=== PATIENT | female | born 1960 | race Caucasian/White ===

== ENCOUNTER 2017-12-19 07:04 | Outpatient (CLI) | payer OTHER, SELFPAY ==
[2017-12-19 07:32] LABS: HCT 43.3 % (36.0-46.0); HGB 14.5 g/dL (12.0-15.5); Mean Corp. HGB Concentration 33.5 g/dL (32.0-36.0); Mean Corpuscular Hemoglobin 31.7 pg (27.0-33.0); Mean Corpuscular Volume 94.7 fL (80-95); Mean Platelet Volume 9.8 fL (8.0-11.0); Platelet Count 231 x1000/uL (130-400); RBC 4.57 m/cumm (4.00-5.20); RBC Distribution Width 12.4 % (11.7-14.6); White Blood Cell Count 5.14 k/cumm (4.4-10.8)
[2017-12-19 08:32] LABS: ALT 36 U/L (12-78); AST 19 U/L (15-37); Albumin 3.6 g/dL (3.4-5.0); Alkaline Phosphatase 64 U/L (46-116); Anion Gap 7.5 mmol/L (3-11); BUN 20 mg/dL (7-18); Bilirubin, Total 0.4 mg/dL (0.2-1.0); CO2 30.5 mmol/L (21.0-32.0); CREATININE 0.64 mg/dL (0.55-1.02); Calcium 8.9 mg/dL (8.5-10.1); Chloride 105 mmol/L (98-107); Cholesterol 210 mg/dL (50-200); Glucose 106 mg/dL (70-100); HDL Cholesterol 73 mg/dL (40-60); LDL CHOLESTEROL 119 mg/dL (<100); Potassium 4.3 mmol/L (3.5-5.1); Sodium 143 mmol/L (136-145); Total Protein 6.7 g/dL (6.4-8.2); Triglyceride 54 mg/dL (30-150)
[2017-12-19 08:37] LABS: TSH (W/Ref FT4) 2.25 uIU/mL (0.358-3.74)
--- NOTE | 2017-12-19 10:00 | DI.MAMMO_ITS ---
SYMPTOM/DIAGNOSIS: SCREENING, Z12.31 MAMMOGRAMS: Mammograms were interpreted according to the usual protocol including computer analysis with CAD system, tomosynthesis and C view imaging. Comparison is made with prior examinations. Breast density, category B. No masses or microcalcifications are seen. There is nothing to suggest malignancy. IMPRESSION: Negative mammogram. Routine screening is recommended. Category 1. MQSA ASSESSMENT OF FINDINGS: Negative. Category 1. Patient will receive a letter notifying them of these results. BI-RADS category B. There are scattered areas of fibroglandular density.
== END 2017-12-19 07:24 ==
PROVIDERS: PCP Student in an Organized Health Care Education/Training Program; Visit Provider Student in an Organized Health Care Education/Training Program
DX: R53.83 Other fatigue (principal); Z12.31 Encounter for screening mammogram for malignant neoplasm of breast
CPT/HCPCS: 36415; 77063; 77067; 80053; 80061; 83721; 85027; 84443

== ENCOUNTER 2018-01-04 14:19 | Outpatient (REF) | payer OTHER, SELFPAY ==
--- NOTE | 2018-01-04 13:00 | PAPFT_PTH ---
PATIENT: Shannan Jeff LOC: N U#:[id number] AGE/SX: 57/F ROOM: RE01/04/[address]: Lianne Monzon : 1960 BED: DIS: 01/04/2018 SPEC #: [id number] RECD: 01/04/18 17:25 STATUS: ALICJA REQ #: [id number] BRANDY: 01/04/18 13:[address]: Lianne Monzon DEPT: [facility] Cytology RECD BY: Brittney Wilkerson ENTERED: 01/04/18 17:26 SP TYPE: PAPFT OTHR DR: Kenna Sepulveda DO Tissues: 1 - CX/ENDOCX FOR PAP SMEARS Procedures: PAP THIN PREP/UVM Screening HPV DNA PROBE Comments: [id number]
== END 2018-01-04 14:39 ==
LOC: LBN 14:19
PROVIDERS: PCP Student in an Organized Health Care Education/Training Program; Visit Provider Obstetrics & Gynecology Gynecology
DX: Z12.4 Encounter for screening for malignant neoplasm of cervix (principal); Z11.51 Encounter for screening for human papillomavirus (HPV)
CPT/HCPCS: 88142; 87624

== ENCOUNTER 2018-04-09 12:58 | Outpatient (CLI) | payer OTHER, SELFPAY ==
--- NOTE | 2018-04-09 14:21 | W.PREOPHP ---
Assessment and Plan (1) Jacobs's neuroma of left foot: Current visit: No Status: Acute Plan: Discussed surgery reviewing recovery, benefits and risks including but not limited to risk of infection, blood clot, damage to soft tissue/nerve/blood vessels with patient in detail. After discussion patient gives verbal understanding of risks and elects to proceed with scheduling surgery. Patient had opportunity to ask questions answered to her satisfaction. Patient will contact office if issues arise, she will continue to be scheduled for left Jacobs's neuroma resection with Dr. Robbins on 04/12/18. Ms. Francoise Arceo is a 58-year-old female who presents to clinic for preoperative visit for scheduled left Jacobs's neuroma resection surgery with Dr. Robbins on 04/12/18. Patient has previously been seen in clinic and was diagnosed with Jacobs's neuroma on her left foot based on persistent left foot pain and numbness between the second webspace that has been going on for greater than 2 years. In the past patient has tried series of corticosteroid injections, shoe modification and metatarsal pads without significant pain relief. At first patient had slight symptomatic relief with conservative therapies but eventually had worsening left foot symptoms. Patient reports symptoms are aggravated at the end of the day if she standing for prolonged amount of time. 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 She continues to have pain that is aggravated throughout the evening and night. She denies any recent injuries or falls. Due to patient's continued pain despite adequate trial of conservative therapies, she was offered and elected to proceed with surgical intervention. Pertinent Surgical Information Patient has previous history of infrequent chest pain was described as 3?4 episodes over the course of 3 years. Cardiology consult from [facility] on 12/04/17 states the stress echo from 2014 was normal, ETT from 2017 showed patient was able to exercise for 10 minutes without subjective or objective symptoms. At that time patient was diagnosed with infrequent episodes of chest pain and told to follow-up on a yearly basis. Patient reports she has not had episodes of chest pain or used nitroglycerin since she was seen in the emergency room on 06/11/16. As per patient report she was told her chest pain was likely due to Prinzmetal's angina but could not be proven on EKG. At today's visit patient denies all cardiac symptoms. Patient reports she recently had a cold that caused her to have nasal congestion, nasal discharge and a dry cough. Patient reports over the past week she has had slight improved symptoms but continues to have mild nasal congestion and dry cough. States she is only taking OTC cold medication during the day; no longer requires nighttime dosing. Patient denies recent fevers, additional HEENT symptoms and additional respiratory symptoms. Reports history of acid reflux that is currently well controlled on DGL (deglycyrrhizinated licorice). Denies recent episodes of acid reflux or ulcers. Denies past medical history of: Hypertension, stroke, asthma, COPD, sleep apnea, renal issues, liver issues, hepatitis, ulcers, hyperlipidemia, bleeding disorders, seizures, diabetes, autoimmune disorders, thyroid issues Denies prior complications from surgery or anesthesia. Review of Systems Constitutional Denies fever(s), Denies frequent falls and Denies headache(s) Eyes Denies change in vision ENT Denies dizziness, Denies otalgia, Denies headache(s), Denies epistaxis, Reports nasal congestion (improving from a recent cold), Denies nasal discharge and Denies sore throat Cardiovascular Denies chest pain, Denies rapid heart rate, Denies irregular heart rhythm, Reports leg edema (following activity), Denies dyspnea, Denies dyspnea on exertion, Denies orthopnea, Denies paroxysmal nocturnal dyspnea and Denies slow heart rate Respiratory Denies change in phlegm color, Reports cough (dry cough; improving from a recent cold), Denies excessive phlegm production, Denies dyspnea, Denies dyspnea on exertion and Denies wheezing Gastrointestinal Denies abdominal pain, Denies melena, Denies hematochezia, Denies constipation, Denies diarrhea, Denies nausea and Denies vomiting Genitourinary Denies hematuria, Denies dysuria and Denies urinary urgency Musculoskeletal Reports as per HPI and Denies numbness (between second webspace of left foot) Integumentary/Breasts Denies acne, Denies sores and Denies wounds Neurologic Denies dizziness, Denies frequent falls, Denies headache(s) and Denies numbness (between second webspace of left foot) Psychiatric Denies anxiety and Denies depression Allergic/Immunologic Denies wheezing PFSH Medical History Vaginal dryness, menopausal Sleeping difficulties (Chronic) Other chest pain (Acute 06/17/16) Myofascial pain (Acute 10/21/11) Jacobs's neuroma of left foot (Acute 02/29/16) Migraine without aura (Acute 10/21/11) Menopausal symptoms (Resolved 09/16/13) GERD (gastroesophageal reflux disease) (Acute 01/23/14) Dyspareunia (Acute 11/26/14) Adjustment disorder with depressed mood (Acute 12/07/16) Postmenopausal HRT (hormone replacement therapy) (Inactive 06/13/17) Surgical History CYST REMOVED FROM NECK Colonoscopy - IV Sedation (12/07/12) GAGLION CYST Tonsillectomy and adenoidectomy Family History Mother Hypertensive disorder, systemic arterial Diabetes Personal history of malignant neoplasm Depression Heart disease Hyperlipidemia Father Personal history of malignant neoplasm Alzheimer's disease Heart disease Sister Diabetes Brother Personal history of malignant neoplasm Heart disease Brother No problems noted. Brother No problems noted. Brother No problems noted. 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 water heater temp set < 120 deg: Yes working smoke detector in home: Yes fire extinguisher in home: Yes carbon monox detector in home: Yes firearms in home: Yes firearms unloaded and locked: No do you feel safe at home: No victim of physical abuse: No victim of emotional abuse: No victim of sexual abuse: No Female Reproductive History Menstrual Menopause type: natural Date of menopause: 01/20/14 History History 0 Para Hx # Term Pregnancies Multiple births Hx # Pregnancies Ectopic pregnancies AB induced Hx Number of Living Children AB spontaneous Meds Home Medications Medication Instructions Recorded Confirmed Type multivitamin [Daily Multi-Vitamin] 1 ea PO DAILY 05/16/12 04/09/18 History Dgl Ultra 1 tab PO TID 08/26/13 04/09/18 History ibuprofen 600 mg PO ONCE PRN tab-cap 12/16/13 04/09/18 History calcium carbonate-vitamin D3 1 ea PO 01/23/14 04/09/18 History Pwlbsteiouf-Qptsa-SFI Complex 1 ea PO BID 06/19/15 04/09/18 History nitroglycerin [Nitrostat] 0.4 mg SUBLINGUAL PRN PRN 07/01/16 04/09/18 History magnesium oxide 400 mg PO DAILY 10/06/16 04/09/18 History estradiol [Estring] 1 ea VG every 3 months #1 ea 06/13/17 04/09/18 Rx melatonin 3 mg tablet 3 mg PO HS PRN 11/17/17 04/09/18 History omega-3 fatty acids 1,000 mg 1,000 mg PO DAILY 01/04/18 04/09/18 History capsule cyanocobalamin (vitamin B-12) 2,500 mcg SUBLINGUAL DAILY 04/09/18 04/09/18 History [Vitamin B-12] folic acid 0.8 mg PO DAILY 04/09/18 04/09/18 History Allergies Allergy/AdvReac Type Severity Reaction Status Date / Time codeine AdvReac Intermediate GI Unverified 04/09/18 14:02 INTOLERANCE meloxicam AdvReac Intermediate groggy Unverified 04/09/18 14:02 Exam Const General: cooperative and no acute distress [facility] Head: normal to inspection, normocephalic and atraumatic Ears: external ears normal General nose exam: external nose normal and no nasal discharge Face and sinus: face symmetric Throat: posterior oropharynx normal (no erythema) Eyes General: appearance normal, both eyes and all related structures Neck Neck: trachea midline Lymphatic: no lymphadenopathy noted Resp Effort & Inspection: normal respiratory effort and able to speak in complete sentences Auscultation: clear to auscultation bilaterally, no rales, no rhonchi and no wheezes Cardio Heart Sounds: S1 normal, S2 normal, no murmurs, no rubs and no other Pulses: radial pulses present bilaterally Skin General skin exam: no rashes or lesions noted
== END 2018-04-09 13:18 ==
PROVIDERS: PCP Student in an Organized Health Care Education/Training Program; Visit Provider Student in an Organized Health Care Education/Training Program
DX: G57.62 Lesion of plantar nerve, left lower limb (principal); Z01.818 Encounter for other preprocedural examination
CPT/HCPCS: NC

== ENCOUNTER 2018-04-12 10:37 | Day surgery (SDC) | payer OTHER, SELFPAY ==
[2018-04-12 10:53] VITALS: BP 131/72; PULSE 66; RESP 16; TEMP 35.9; O2SAT 99
[2018-04-12] MEDS: Lactated Ringers 1,000 ML 80 ML IV (11:25)
--- NOTE | 2018-04-12 12:30 | W.PM.DSUDISC ---
Discharge Plan Disposition Patient Disposition: HOME Condition: Good Discharge Details Reason For Visit: Left Jacobs's Neuroma Attending Provider: Oscar Robbins Primary Care Provider: Kenna Sepulveda Home Meds and New Rx's Prescriptions: New acetaminophen 500 mg tablet 1,000 mg PO Q8H PRN (Reason: pain) Qty: 60 RF: 3 ibuprofen 600 mg tablet 600 mg PO TID PRNQty: 60 RF: 3 Continued melatonin 3 mg tablet 3 mg PO HS PRNRF: 0 omega-3 fatty acids [Fish Oil Concentrate] 1,000 mg capsule 1,000 mg PO DAILY RF: 0 multivitamin [Daily Multi-Vitamin] 1 EACH tablet 1 ea PO DAILY RF: 0 DGL Ultra 1 tab PO TID RF: 0 calcium carbonate-vitamin D3 1 EACH tablet 1 ea PO RF: 0 Hbpzthsngyc-Qbxgf-EFG Complex 1 EACH tablet 1 ea PO BID RF: 0 nitroglycerin [Nitrostat] 0.4 MG tablet, sublingual 0.4 mg Sublingual PRN PRNRF: 0 magnesium oxide 400 MG tablet 400 mg PO DAILY RF: 0 Estring 1 EACH ring 1 ea VG every 3 months Qty: 1 RF: 4 cyanocobalamin (vitamin B-12) [Vitamin B-12] 2,500 mcg Tablet, Sublingual 2,500 mcg SUBLINGUAL DAILY RF: 0 folic acid 800 mcg Tablet 0.8 mg PO DAILY RF: 0 Discontinued ibuprofen 200 MG capsule 600 mg PO ONCE PRNRF: 0 Discharge Instructions Additional Instructions: Activity: You may weight bear as tolerated in the post-op shoe. You should keep the leg elevated as much as possible. You may wiggle your toes and move your hip and knee. You should wear the post-op shoe when you are up and mobilizing, but may remove it when not and move your ankle as tolerated. Dressings: You should keep the initial dressing on for at least 3 days. After 3 days, you may remove it and get it wet in the shower. You should keep it covered with a light gauze dressing or wrap until follow-up. Medications: - You should take Tylenol and Ibuprofen around the clock for baseline pain. Follow-up: 2 weeks Referrals: Oscar Robbins MD [ [facility] STAFF PHYSICIAN] - Equipment/Supplies: Partial Weight Bearing Crutches Activity:: Activity as Tolerated Remove Dressings/Wound Care:: 72 hours Shower/Bathe:: 72 hours Diet:: As Tolerated Discharge Orders Discharge Orders: Discharge Order (Routine); Ordered 04/12/18 Ordered By: Oscar Robbins DS: Diagnosis Discharge Diagnosis (1) Jacobs's neuroma of left foot: Status: Acute
--- NOTE | 2018-04-12 12:34 | PDOC.DSDIS_ITS ---
Discharge Plan Disposition Patient Disposition: HOME Condition: Good Discharge Details Reason For Visit: Left Jacobs's Neuroma Attending Provider: Oscar Robbins Primary Care Provider: Kenna Sepulveda Home Meds and New Rx's Prescriptions: New acetaminophen 500 mg tablet 1,000 mg PO Q8H PRN (Reason: pain) Qty: 60 RF: 3 ibuprofen 600 mg tablet 600 mg PO TID PRNQty: 60 RF: 3 Continued melatonin 3 mg tablet 3 mg PO HS PRNRF: 0 omega-3 fatty acids [Fish Oil Concentrate] 1,000 mg capsule 1,000 mg PO DAILY RF: 0 multivitamin [Daily Multi-Vitamin] 1 EACH tablet 1 ea PO DAILY RF: 0 DGL Ultra 1 tab PO TID RF: 0 calcium carbonate-vitamin D3 1 EACH tablet 1 ea PO RF: 0 Kffnzhkaosj-Opqyy-FJI Complex 1 EACH tablet 1 ea PO BID RF: 0 nitroglycerin [Nitrostat] 0.4 MG tablet, sublingual 0.4 mg Sublingual PRN PRNRF: 0 magnesium oxide 400 MG tablet 400 mg PO DAILY RF: 0 Estring 1 EACH ring 1 ea VG every 3 months Qty: 1 RF: 4 cyanocobalamin (vitamin B-12) [Vitamin B-12] 2,500 mcg Tablet, Sublingual 2,500 mcg SUBLINGUAL DAILY RF: 0 folic acid 800 mcg Tablet 0.8 mg PO DAILY RF: 0 Discontinued ibuprofen 200 MG capsule 600 mg PO ONCE PRNRF: 0 Discharge Instructions Additional Instructions: Activity: You may weight bear as tolerated in the post-op shoe. You should keep the leg elevated as much as possible. You may wiggle your toes and move your hip and knee. You should wear the post-op shoe when you are up and mobilizing, but may remove it when not and move your ankle as tolerated. Dressings: You should keep the initial dressing on for at least 3 days. After 3 days, you may remove it and get it wet in the shower. You should keep it covered with a light gauze dressing or wrap until follow-up. Medications: - You should take Tylenol and Ibuprofen around the clock for baseline pain. Follow-up: 2 weeks Referrals: Oscar Robbins MD [ [facility] STAFF PHYSICIAN] - Equipment/Supplies: Partial Weight Bearing Crutches Activity:: Activity as Tolerated Remove Dressings/Wound Care:: 72 hours Shower/Bathe:: 72 hours Diet:: As Tolerated Discharge Orders Discharge Orders: Discharge Order (Routine); Ordered 04/12/18 Ordered By: Oscar Robbins DS: Diagnosis Discharge Diagnosis (1) Jacobs's neuroma of left foot: Status: Acute
[2018-04-12] MEDS: Bupivacaine 0.25% Pres-Free 30 ML VIAL (13:33)
[2018-04-12] MEDS: Bupivacaine LIPOSOME/PF 133 MG/10 ML VIAL IJ (13:33)
[2018-04-12] MEDS: HYDROcodone 5/Acetaminophen 325 TAB PO (14:20)
[2018-04-12 15:15] VITALS: BP 124/65; PULSE 71; RESP 18; TEMP 35.9; O2SAT 99
--- NOTE | 2018-04-13 07:50 | ROE_ITS ---
REPORT OF OPERATIVE PROCEDURE DATE OF SURGERY April 12, 2018 PREOPERATIVE DIAGNOSIS Left second webspace Jacobs's neuroma. POSTOPERATIVE DIAGNOSIS Left second webspace Jacobs's neuroma. SURGERY Left second webspace Jacobs's neuroma excision with intermetatarsal ligament release. SURGEON Oscar Robbins M.D. COMMUNITY SERVICE WORKER Mehdi Bernard, Medical Student ANESTHESIA MAC FINDINGS There was some significant inflammation seen within the second webspace. The common digital nerve was exposed after releasing the intermetatarsal ligament, which showed significant swelling proximal to the intermetatarsal ligament. The nerve was released and removed. ESTIMATED BLOOD LOSS 5 cc COMPLICATIONS None. DISPOSITION The patient was awakened from sedation and taken to the PACU in stable condition. INDICATIONS FOR PROCEDURE Jaqui is a 58-year old who has had persistent pain over the second webspace of the left foot with exten renetta and sometimes into the toes. She has failed conservative treatment options including orthotics, metatarsal pads, activity modification, and shoe modification. Given these failures, she desires to p roceed with some more definitive. I offered surgical intervention to the left foot. I reviewed the ri sks of the procedure to include bleeding, infection, pain, stiffness, weakness, persistent numbness, continued pain. Despite these risks, she elected to proceed. PROCEDURE DESCRIPTION Jaqui was greeted in the preoperative holding area. Her identity was confirmed and the correct side was identified and marked. The consent was reviewed with the patient and signed. The history and physica l was updated. She was taken back to the Operating Room and placed in the supine position. All bony p rominences were padded. The left leg was prepped with ChloraPrep and draped in a standard fashion. P rophylactic antibiotics in the form of cefazolin were given. A timeout was performed for safe surgery . The left leg was then placed over a triangle so the foot was plantar grade against the bed. The propo sed surgical site was then anesthetized with 0.25% bupivacaine. A 3-cm incision was made between the second and third metatarsals. This was taken down sharply through the skin. Crossing branches of vei ns and nerves were protected. Deeper dissection was performed bluntly with a finger, down in between the metatarsals. The metatarsals were using a lamina senior electronics design engineer. This exposed the lumbricals deep within this webspace and further deep was the intermetatarsal ligament. This ligament was releas ed. This allowed the metatarsals to open up more, exposing the fat from the plantar surface, as well as the common digital nerve. It was noted that just proximal to the intermetatarsal ligament, the ner ve was significantly swollen. The nerve was dissected out until it got to it bifurcation point. The n erve was then transected right past its bifurcation point into the second and third toes. Once this w as transected, the nerve was pulled with some tension and dissected more proximally. Once the nerve w as dissected into the musculature of the plantar foot, it was transected sharply. The wound was then thoroughly irrigated. The bleeding was controlled with electrocautery. Deep tissues were closed with #3-0 Vicryl. The skin was closed with a #4-0 Monocryl, followed by Steri-Strips, 4x4s, Kerlix and Ac e wrap. She was placed into a postop shoe. At the end of the case, all counts were correct.
== END 2018-04-12 15:20 | disposition home or self-care (01) ==
PROVIDERS: PCP Student in an Organized Health Care Education/Training Program; Visit Provider Student in an Organized Health Care Education/Training Program
PROC: (CPT 28080; principal; 2018-04-12 12:45)
DX: G57.62 Lesion of plantar nerve, left lower limb (principal); M79.672 Pain in left foot; K21.9 Gastro-esophageal reflux disease without esophagitis
CPT/HCPCS: 28080; E0114; J0690

== ENCOUNTER 2019-01-24 09:58 | Outpatient (REF) | payer OTHER, SELFPAY ==
--- NOTE | 2019-01-24 09:20 | PAPFT_PTH ---
PATIENT: Shannan Jeff LOC: [facility] U#:[id number] AGE/SX: 58/F ROOM: RE01/24/[address]: Lianne Monzon : 1960 BED: DIS: 01/24/2019 SPEC #: [id number] RECD: 01/24/19 13:11 STATUS: ALICJA REQ #: [id number] BRANDY: 01/24/19 09:[address]: Lianne Monzon DEPT: [facility] Cytology RECD BY: Brittney Wilkerson ENTERED: 01/24/19 13:12 SP TYPE: PAPFT OTHR DR: Kenna Sepulveda DO Tissues: 1 - CX/ENDOCX FOR PAP SMEARS Procedures: PAP THIN PREP/UVM Screening HPV DNA PROBE Comments: [id number]
== END 2019-01-24 10:18 ==
LOC: LBN 09:58
PROVIDERS: PCP Student in an Organized Health Care Education/Training Program; Visit Provider Obstetrics & Gynecology Gynecology
DX: Z12.4 Encounter for screening for malignant neoplasm of cervix (principal)
CPT/HCPCS: 88142; 87624

== ENCOUNTER 2019-02-18 09:40 | Outpatient (CLI) | payer OTHER, SELFPAY ==
--- NOTE | 2019-02-18 09:59 | DI.DEXA_ITS ---
EXAM: XR DEXA BONE DENSITY W/WO ANNA INDICATION: evaluate bone density Z78.0. COMPARISON: No exams were available for comparison TECHNIQUE: 2D digital imaging was performed. FINDINGS: No compression deformities are seen in the spine. Evaluation of the left hip shows a total T-score of 0.4 and a Z-score of 1.2. This is within normal limits. This compares with a total T-score of 1.7 from 2003. Evaluation of the lumbar spine shows a total T-score of -0.5 and a Z-score of 0.8. This is within no rmal limits. This compares with a total T-score of 1.0 from 2003. IMPRESSION: No evidence of osteoporosis.
== END 2019-02-18 10:00 ==
PROVIDERS: PCP Student in an Organized Health Care Education/Training Program; Visit Provider Obstetrics & Gynecology Gynecology
DX: Z78.0 Asymptomatic menopausal state (principal); Z13.820 Encounter for screening for osteoporosis
CPT/HCPCS: 77080

== ENCOUNTER 2019-03-18 08:44 | Outpatient (CLI) | payer OTHER, SELFPAY | END 2019-03-18 09:04 | PROVIDERS: PCP Student in an Organized Health Care Education/Training Program; Visit Provider Internal Medicine Cardiovascular Disease | DX: R07.89 Other chest pain (principal); Z82.49 Family history of ischemic heart disease and other diseases of the circulatory system | CPT/HCPCS: 93005; 93010 ==

== ENCOUNTER 2019-06-25 13:46 | Outpatient (CLI) | payer OTHER, SELFPAY ==
--- NOTE | 2019-06-25 13:45 | DI.MAMMO_ITS ---
EXAM: MAMMO SCREENING CLINICAL HISTORY: screening,z12.39 TECHNIQUE: Mammograms were interpreted according to the usual protocol including computer analysis w Edyn CAD system, tomosynthesis and 2D or C-view imaging. COMPARISON: 2010 through 2017 FINDINGS: The breasts are composed of scattered fibroglandular densities, breast density category B. There is is an symmetric densities seen in the medial right breast adjacent to a vessel. The finding s may represent overlying fibroglandular tissue. Spot compression views are requested for further ev aluation. Ultrasound may also be indicated at that time. No suspicious calcifications are seen. The left breast shows no mass, calcification or other change. IMPRESSION: Left breast: BI-RADS category 1, negative mammogram. Right breast: BI-RADS category 0, additional imaging is requested. Breast Density - Category B - Scattered areas of fibroglandular density The patient will receive a letter notifying them of these results.
== END 2019-06-25 14:06 ==
PROVIDERS: PCP Student in an Organized Health Care Education/Training Program; Visit Provider Obstetrics & Gynecology Gynecology
DX: Z12.31 Encounter for screening mammogram for malignant neoplasm of breast (principal)
CPT/HCPCS: 77063; 77067

== ENCOUNTER 2019-06-26 12:12 | Outpatient (CLI) | payer OTHER, SELFPAY ==
--- NOTE | 2019-06-26 | DI.US_ITS ---
EXAM: US BREAST RT LIMITED CLINICAL HISTORY: f/u [facility] MAMMO 06/24 TECHNIQUE: Ultrasound right breast performed using standard protocol. COMPARISON: Comparison is made with mammograms dated June, as well as additional views of 2019. FINDINGS: No solid or cystic masses, hypoechoic foci, areas of abnormal shadowing, or areas of skin thickening. IMPRESSION: No sonographically suspicious finding. BI-RADS category 3- Probably Benign Finding: Recommend follow-up mammography in 6 months DATA REPOSITORY:
--- NOTE | 2019-06-26 | DI.MAMMO_ITS ---
EXAM: MAMMO SCREEN CALL BACK UNI CLINICAL HISTORY: F/U ABNL MAMMO 06/24. COMPARISON: June, as well as exams back to 2010. TECHNIQUE: Spot compression views with tomography were performed in the CC and MLO projections of th e lower and inner aspects of the right breast. FINDINGS: Mammography/Tomosynthesis: On the spot compression CC view, there is a question of a persistent area of asymmetry in the medial right breast. No abnormality or change is seen on the MLO spot view. /Architectural Distortion: None seen. Microcalcifications: No suspicious pleomorphic type calcifications are seen. Skin Thickening/Nipple Retraction: None. IMPRESSION: BI-RADS category 3- probably Benign Findings: Recommend follow-up right mammogram in 6 months. A negative radiographic report should not delay biopsy if a dominant or clinically suspicious mass is present. Up to ten percent of cancers are not identified on mammography. A negative report may reinforce clinical impression. Adenosis and dense breasts may obscure an underlying neoplasm. False positive reports average 6 to 10%. Patient will receive a letter notifying them of these results.
== END 2019-06-26 12:32 ==
PROVIDERS: PCP Student in an Organized Health Care Education/Training Program; Visit Provider Obstetrics & Gynecology Gynecology
DX: Z12.31 Encounter for screening mammogram for malignant neoplasm of breast (principal); R92.8 Other abnormal and inconclusive findings on diagnostic imaging of breast; N60.81 Other benign mammary dysplasias of right breast
CPT/HCPCS: 76642; 77063; 77067

== ENCOUNTER 2019-11-26 07:15 | Outpatient (CLI) | payer OTHER, SELFPAY ==
[2019-11-28 15:23] LABS: Patient Race White; SARS-CoV-2 RNA Undetected (Undetected); SARS-CoV-2 Specimen Source Nasal
== END 2019-11-26 07:35 ==
PROVIDERS: PCP Student in an Organized Health Care Education/Training Program; Visit Provider Nurse Practitioner Family
DX: Z11.59 Encounter for screening for other viral diseases (principal)
CPT/HCPCS: U0003

== ENCOUNTER 2020-01-14 01:33 | Outpatient (CLI) | payer OTHER, SELFPAY ==
--- NOTE | 2020-01-14 09:26 | DI.MAMMO_ITS ---
EXAM: MG MAMMO DIAGNOSTIC UNI CLINICAL HISTORY: F/U MAMMO, 6 MONTH FOLLOW UP. TECHNIQUE: Craniocaudal and mediolateral oblique Full Field Digital Mammography views of the right breast with Computer Aided Diagnosis followed by Tomosynthesis. COMPARISON: 25 Jun 2019 and other exams back to 2010. FINDINGS: Mammography/Tomosynthesis: The previously noted asymmetric densities seen in the lower inner quadrant of the right breast is le ss prominent when compared with the previous exam. Masses/Architectural Distortion: None seen. Microcalcifictions: No suspicious pleomorphic-type are seen. Skin Thickening/Nipple Retraction: None. IMPRESSION: 1. No evidence of malignancy is noted. 2. Bilateral screening should be resumed in 6 months. BI-RADS Category 2 - Benign Findings Breast Density - Category B - Scattered areas of fibroglandular density A negative radiographic report should not delay biopsy if a dominant or clinically suspicious mass is present. Up to ten percent of cancers are not identified on mammography. A negative report may reinforce clinical impression. Adenosis and dense breasts may obscure an underlying neoplasm. False positive reports average 6 to 10%. Patient will receive a letter notifying them of these results.
== END 2020-01-14 01:53 ==
PROVIDERS: PCP Student in an Organized Health Care Education/Training Program; Visit Provider Obstetrics & Gynecology Gynecology
DX: R92.8 Other abnormal and inconclusive findings on diagnostic imaging of breast (principal)
CPT/HCPCS: 77061; 77065; G0279

== ENCOUNTER 2020-09-08 10:35 | Outpatient (CLI) | payer OTHER, SELFPAY ==
--- NOTE | 2020-09-08 09:30 | DI.MAMMO_ITS ---
Exam(s) MG MAMMO SCREENING EXAM: MG MAMMO SCREENING CLINICAL HISTORY: screening, Z12.39 TECHNIQUE: Mammograms were interpreted according to the usual protocol including computer analysis w ith CAD system, tomosynthesis and C-view imaging. COMPARISON: MG Screening Bilat Mammo from 11/12/2014 MG Screening Bilat Mammo from 02/24/2016 MG Screening Bilat Mammo from 02/24/2016 MG MG mammo screening from 12/19/2017 MG MG mammo screening from 12/19/2017 MG MG MAMMO SCREENING from 06/25/2019 MG MG MAMMO SCREEN CALL BACK UNI from 06/26/2019 MG MG MAMMO SCREEN CALL BACK UNI from 06/26/2019 MG MG MAMMO DIAGNOSTIC UNI from 01/14/2020 MG MG MAMMO DIAGNOSTIC UNI from 01/14/2020 FINDINGS: The breasts are composed of scattered fibroglandular densities, Breast Density category B. No suspicious masses or suspicious microcalcifications are seen. No skin thickening or abnormal axillary lymph nodes are seen. There has been no significant change from prior exams. IMPRESSION: BI-RADS Category 1, Negative mammogram Yearly screening mammography is recommended. Breast Density - Category B, scattered fibroglandular densities. A negative radiographic report should not delay biopsy if a dominant or clinically suspicious mass is present. Up to ten percent of cancers are not identified on mammography. A negative report may reinforce clinical impression. Adenosis and dense breasts may obscure an underlying neoplasm. False positive reports average 6 to 10%. Patient will receive a letter notifying them of these results.
== END 2020-09-08 10:55 ==
PROVIDERS: PCP Student in an Organized Health Care Education/Training Program; Visit Provider Obstetrics & Gynecology Gynecology
DX: Z12.31 Encounter for screening mammogram for malignant neoplasm of breast (principal); R92.8 Other abnormal and inconclusive findings on diagnostic imaging of breast
CPT/HCPCS: 77063; 77067

== ENCOUNTER 2020-10-15 12:00 | Outpatient (CLI) | payer OTHER, SELFPAY ==
[2020-10-15 17:11] LABS: Abs Immature Grans 0.03 10^3/uL (0.0-0.06); Absolute Basophil Count 0.03 10^3/uL (0.0-0.2); Absolute Eosinophil Count 0.22 10^3/uL (0.0-0.7); Absolute Lymphocyte Count 1.71 10^3/uL (1.2-3.4); Absolute Monocyte Count 0.47 10^3/uL (0.1-0.8); Absolute Neutrophil Count 6.08 10^3/uL (1.2-6.7); Basophils % 0.4; Eosinophils % 2.6; HCT 38.2 % (36.0-46.0); HGB 12.9 g/dL (11.2-15.7); Immature Grans % 0.4; MCH 31.6 pg (27.0-33.0); MCHC 33.8 % (32.0-36.0); MCV 93.6 fL (80-95); MPV 9.5 fL (8.0-11.0); Monocytes % 5.5; Neutrophils % 71.1; Nucleated RBC 0 %; Platelet Count 281 10^3/uL (130-400); RBC 4.08 10^6/uL (3.93-5.22); RDW 11.6 % (11.7-14.6); RDW-SD 39.7 fL; WBC 8.54 10^3/uL (4.4-10.8)
[2020-10-15 17:15] LABS: ALT 20 U/L (14-59); AST 15 U/L (15-37); Albumin 3.4 g/dL (3.4-5.0); Alkaline Phosphatase 84 U/L (46-116); Anion Gap 8.3 mmol/L (3-11); BUN 12 mg/dL (7-18); Bilirubin, Total 0.4 mg/dL (0.2-1.0); CO2 27.7 mmol/L (21.0-32.0); CREATININE 0.8 mg/dL (0.55-1.02); Calcium 8.8 mg/dL (8.5-10.1); Chloride 104 mmol/L (98-107); Glucose 97 mg/dL (74-106); Potassium 3.2 mmol/L (3.5-5.1); Sodium 140 mmol/L (136-145)
[2020-10-19 12:49] LABS: Lyme Ab w Rflx to Lyme Confirm Negative (Negative)
[2020-10-19 17:52] LABS: Anaplasma phagocytophilum Negative (Negative); B. miyamotoi PCR Negative (Negative); Babesia divergens/MO-1 Negative (Negative); Babesia duncani Negative (Negative); Babesia microti Negative (Negative); Ehrlichia chaffeensis Negative (Negative); Ehrlichia ewingii/canis Negative (Negative); Ehrlichia muris eauclairensis Negative (Negative)
== END 2020-10-15 12:01 | disposition home or self-care (01) ==
LOC: LBO 10-16 17:00
PROVIDERS: PCP Student in an Organized Health Care Education/Training Program; Visit Provider Student in an Organized Health Care Education/Training Program
DX: M79.89 Other specified soft tissue disorders (principal); R19.7 Diarrhea, unspecified; E86.0 Dehydration; T63.301A Toxic effect of unspecified spider venom, accidental (unintentional), initial encounter; W57.XXXA Bitten or stung by nonvenomous insect and other nonvenomous arthropods, initial encounter
CPT/HCPCS: 36415; 80053; 87798; 83735; 85025; 86618

== ENCOUNTER 2020-10-16 08:30 | Outpatient (RCR) | payer OTHER, SELFPAY ==
[2020-10-16] MEDS: Normal Saline Flush 10 ML SYR IVP (10:05)
[2020-10-16] MEDS: POTASSIUM CHLORIDE/0.9% NACL 1,000 ML 500 MEQ IV (10:05)
[2020-10-16 12:53] LABS: BUN 7 mg/dL (7-18); CREATININE 0.6 mg/dL (0.55-1.02); Calcium 8.2 mg/dL (8.5-10.1); Chloride 109 mmol/L (98-107); Glucose 100 mg/dL (74-106); Potassium 3.9 mmol/L (3.5-5.1); Sodium 144 mmol/L (136-145)
[2020-10-16 12:53] LABS: Magnesium 1.9 mg/dL (1.8-2.4)
== END 2020-10-20 23:59 | disposition home or self-care (01) ==
LOC: INF 08:30
PROVIDERS: PCP Student in an Organized Health Care Education/Training Program; Visit Provider Student in an Organized Health Care Education/Training Program
DX: E86.0 Dehydration (principal); T78.40XA Allergy, unspecified, initial encounter
CPT/HCPCS: 36415; 80048; 96360; 96361; 83735

== ENCOUNTER 2020-12-02 04:13 | Outpatient (CLI) | payer OTHER, SELFPAY ==
[2020-12-02 09:26] LABS: Anion Gap 10.4 mmol/L (3-11); BUN 17 mg/dL (7-18); CO2 26.6 mmol/L (21.0-32.0); CREATININE 0.6 mg/dL (0.55-1.02); Calcium 8.8 mg/dL (8.5-10.1); Calculated LDL 119 mg/dL (<100); Chloride 104 mmol/L (98-107); Cholesterol 193 mg/dL (<200); Glucose 99 mg/dL (74-106); HDL Cholesterol 64 mg/dL (40-60); Sodium 141 mmol/L (136-145); TSH (W/Ref FT4) 2.42 uIU/mL (0.36-3.74); Triglyceride 53 mg/dL (<150)
[2020-12-02 11:11] LABS: Hemoglobin A1C 5.4 % (<5.7)
[2020-12-03 04:57] LABS: Vitamin D 25 Total 60.7 ng/mL (30-100)
== END 2020-12-02 04:14 | disposition home or self-care (01) ==
LOC: LBO 04:14
PROVIDERS: PCP Student in an Organized Health Care Education/Training Program; Visit Provider Student in an Organized Health Care Education/Training Program
DX: R53.83 Other fatigue; M81.0 Age-related osteoporosis without current pathological fracture; R79.89 Other specified abnormal findings of blood chemistry; F32.9 Major depressive disorder, single episode, unspecified; M89.8X8 Other specified disorders of bone, other site; I51.9 Heart disease, unspecified; Z13.220 Encounter for screening for lipoid disorders; Z83.3 Family history of diabetes mellitus; E86.0 Dehydration; E87.6 Hypokalemia; E46 Unspecified protein-calorie malnutrition
CPT/HCPCS: 36415; 80048; 80061; 82306; 83036; 84443

== ENCOUNTER 2021-06-14 09:41 | Outpatient (REF) | payer OTHER, SELFPAY ==
--- NOTE | 2021-06-14 09:11 | PAPFT_PTH ---
PATIENT: Shannan Jeff LOC: [facility] U#:[id number] AGE/SX: 61/F ROOM: RE06/14/[address]: Lianne Monzon : 1960 BED: DIS: 06/14/2021 SPEC #: [id number] RECD: 06/14/21 13:05 STATUS: ALICJA REQ #: [id number] BRANDY: 06/14/21 09:[address]: Lianne Monzon DEPT: [facility] Cytology RECD BY: Brittney Wilkerson ENTERED: 06/14/21 13:06 SP TYPE: PAPFT OTHR DR: Kenna Sepulveda DO Tissues: 1 - CX/ENDOCX FOR PAP SMEARS Procedures: PAP THIN PREP/UVM Screening HPV DNA PROBE Comments: [id number]
== END 2021-06-14 09:42 | disposition home or self-care (01) ==
LOC: LBN 09:41
PROVIDERS: PCP Student in an Organized Health Care Education/Training Program; Visit Provider Obstetrics & Gynecology Gynecology
DX: Z12.4 Encounter for screening for malignant neoplasm of cervix (principal); Z11.51 Encounter for screening for human papillomavirus (HPV)
CPT/HCPCS: 88142; 87624

== ENCOUNTER → 2021-09-03 09:43 | Outpatient (CLI) | payer BC, SELFPAY ==
--- NOTE | 2021-09-03 11:18 | DI.RAD_ITS ---
Exam(s) XR KNEE LT 4V AP,LAT,DANETTE,PAT EXAM: XR KNEE LT 4V AP,LAT,DANETTE,PAT CLINICAL HISTORY: LT KNEE PAIN, M25.562. TECHNIQUE: 2D digital imaging was performed of the left knee. Four images were obtained. Merchant, AP, lateral and PA tunnel views were obtained. COMPARISON: No priors for comparison. FINDINGS: BONES: No acute fracture is present. No bony destructive lesion is seen. JOINTS: The knee is normally aligned. No joint effusion is seen. There is minimal periarticular spurr ing and joint space narrowing. SOFT TISSUE: Normal. IMPRESSION: Mild degenerative changes of the left knee. DATA REPOSITORY: RADIATION DOSE DELIVERED:
== END ==
PROVIDERS: PCP Student in an Organized Health Care Education/Training Program; Visit Provider Chiropractor
DX: M25.562 Pain in left knee (principal); M25.862 Other specified joint disorders, left knee
CPT/HCPCS: 73564

== ENCOUNTER 2021-09-13 17:06 | Outpatient (REF) | payer BC, SELFPAY | END 2021-09-13 17:07 | disposition home or self-care (01) | LOC: NCHCN 17:06 | PROVIDERS: PCP Student in an Organized Health Care Education/Training Program; Visit Provider Family Medicine | DX: J02.9 Acute pharyngitis, unspecified (principal) | CPT/HCPCS: 87070 ==

== ENCOUNTER → 2021-11-17 10:52 | Outpatient (CLI) | payer BC, SELFPAY ==
--- NOTE | 2021-11-17 08:00 | DI.MAMMO_ITS ---
Exam(s) MAMMO SCREENING EXAM: MAMMO SCREENING CLINICAL HISTORY: screening,z12.39 TECHNIQUE: Mammograms were interpreted according to the usual protocol including computer analysis w [employer] CAD system, tomosynthesis and C-view imaging. COMPARISON: FINDINGS: The breasts are of moderate density with fairly symmetrical distribution of fibroglandular tissue. N o dominant mass or clumped microcalcification is identified in either breast. The current examinatio n is compared with previous examinations including August 2020 and there has been no gross interval mercy nge in appearance in comparison with the prior studies. IMPRESSION: No specific evidence of malignancy at this time. Routine screening examinations are suggested at yea rly intervals in this age group according to the ACS ACR guidelines. BI-RADS Category 1 - Negative Breast Density - Category B - Scattered areas of fibroglandular density
== END ==
PROVIDERS: PCP Student in an Organized Health Care Education/Training Program; Visit Provider Obstetrics & Gynecology Gynecology
DX: Z12.31 Encounter for screening mammogram for malignant neoplasm of breast (principal)
CPT/HCPCS: 77063; 77067

== ENCOUNTER 2022-03-23 09:49 | Outpatient (CLI) | payer BC, SELFPAY ==
--- NOTE | 2022-03-23 14:50 | DI.MRI_ITS ---
Exam(s) MR LUMBAR SPINE WO EXAM: MR LUMBAR SPINE WO CLINICAL HISTORY: evaluate soft tissue nerve root pathology,RADICULOPATHY,ACUTE LOW BACK PA. TECHNIQUE: Multiplanar multisequence MRI of the Lumbar spine was performed. COMPARISON: CT ABD PELVIS WITH CONTRAST from 10/19/2016 CR XR DEXA BONE DENSITY W/WO ANNA from 02/18/2019 FINDINGS: Bones: The last intervertebral disc space is designated the L5/S1 level for the numbering purpose of this examination. The vertebral body heights are well maintained. Alignment is satisfactory. Maximino iomas seen in L1, L3 and S1 vertebral bodies. Cord: The conus tip ends at the T12 level. It is of normal size and signal intensity. T12-L1: No disc herniations or bulges are present. No central spinal canal or neural foraminal stenos is. L1-2: No disc herniations or bulges are present. No central spinal canal or neural foraminal stenosis . L2-3: No disc herniations or bulges are present. No central spinal canal or neural foraminal stenosis . L3-4: Bone mild loss of disc height and mild concentric disc bulging. Mild facet degenerative change s. Mild bilateral neural foraminal narrowing. L4-5: Mild loss of disc height, small endplate osteophytes and mild concentric disc bulging. Mild ri ght neural foraminal narrowing. L5-S1: Moderate to severe loss of disc height. Small endplate osteophytes and mild concentric disc b ulging. Mild facet degenerative changes. Severe left and mild right neural foraminal narrowing. The visualized SI joints and sacrum are well maintained. Soft tissues: The paraspinal soft tissues are unremarkable. IMPRESSION: Degenerative changes from L3-4 through L5-S1. No focal disc herniation. No significant central canal stenosis. Neural foraminal narrowing greatest on the left at L5-S1. DATA REPOSITORY: CONTRAST MATERIAL: Noncontrast
== END 2022-03-23 10:09 ==
PROVIDERS: PCP Student in an Organized Health Care Education/Training Program; Visit Provider Student in an Organized Health Care Education/Training Program
DX: M54.16 Radiculopathy, lumbar region (principal); G89.29 Other chronic pain; M51.17 Intervertebral disc disorders with radiculopathy, lumbosacral region; M47.27 Other spondylosis with radiculopathy, lumbosacral region
CPT/HCPCS: 72148

== ENCOUNTER 2022-07-07 09:19 | Outpatient (CLI) | payer BC, SELFPAY ==
--- NOTE | 2022-07-07 06:00 | DI.RAD_ITS ---
Exam(s) XR PAIN CLINIC LUMBAR SP 2V EXAM: XR PAIN CLINIC LUMBAR SP 2V CLINICAL HISTORY: Dx: Lumbar Radiculopathy TECHNIQUE: 2D and realtime digital imaging was performed. CONTRAST MATERIAL: Refer to procedure report. COMPARISON: No exams were available for comparison FINDINGS: Fluoroscopy was provided for Dr. Torre during the performance of a lumbar epidural steroid injection. Please refer to the procedure report for complete details. Ka,r=7.45 mGy IMPRESSION:
[2022-07-07 09:32] VITALS: BP 127/77; PULSE 75; RESP 20; TEMP 36.2; O2SAT 99
[2022-07-07] MEDS: Omnipaque 240 MG/ML 50 ML BTL IJ (10:33)
[2022-07-07] MEDS: methylPREDNISolone ACETATE 80 MG/ML VIAL IJ (10:33)
[2022-07-07 11:12] VITALS: BP 158/87; PULSE 66; RESP 13; O2SAT 98
--- NOTE | 2022-07-26 13:12 | PDOC.PAIN ---
Date of service: 07/07/22 Time of Service: 13:30 Pain Managment Procedure Note Procedure Note Procedure Note: Lumbar Epidural Steroid Injection Procedure Note COMMENTS:I previously evaluated her in the clinic. She continues to have low back pain with pain radiating down the left leg. Pre-procedure pain VAS was 6/10 Dx: Lumbosacral radiculopathy Shannan Jeff has been referred to the [facility] Management [facility] for lumbar epidural steroid injection. The patient was greeted by the nurse who verified patients name and . Patient was then taken to the fluoroscopy suite. The patient was interviewed and the medial record reviewed. There were no medical, pharmacologic, radiographic, or other structural contraindications to attempting fluoroscopically guided lumbar epidural steroid injection. Risks and expected side effects as well as potential benefits of the procedure were reviewed and voiced concerns expressed. The patient consent form was signed and witnessed. Standard patient time-out procedure was performed. The patient was placed in the prone position on the fluoroscopy table and automated blood pressure cuff and pulse oximeter applied. The skin entry point for entering/approaching the epidural space at the L5-S1 (left side the the interlaminar space) and marked. Following thorough chlorhexadine preparation of the skin and draping and 1% lidocaine infiltration of the skin entry point and subcutaneous tissues, a 18 gauge Touhy needle was placed under fluoroscopic guidance and with loss of resistance technique into the epidural space. Needle tip placement and depth were aided and confirmed by fluoroscopy. There was no paresthesia or return of blood or CSF through the needle. 1 cc's of Omnipaque 240 was injected with clear epidural spread confirmed with fluoroscopy. 80mg depomedrol was injected. There was not any unusual discomfort expressed by Shannan Jeff. Patient's vital signs were stable throughout the procedure and were as recorded in nursing records. Follow up plans and appointments were discussed with patient. Post procedure instruction was given as documented in nursing records and having met discharge criteria and was discharged from the Pain Management Center. COMMENTS: If this procedure is helpful (at least 50% pain and/or functional improvement for at least 3 months), it can be completed up to 4 times per 12 months. Post-procedure pain VAS was 1/10. Giovani Torre DO, MPH [facility]-Pain Management [facility] for [facility] Management
== END 2022-07-07 09:20 | disposition home or self-care (01) ==
LOC: PC 09:19
PROVIDERS: PCP Student in an Organized Health Care Education/Training Program; Visit Provider Preventive Medicine Occupational Medicine
DX: M54.17 Radiculopathy, lumbosacral region (principal)
CPT/HCPCS: 62323; 72100; J1040; Q9967

== ENCOUNTER 2022-08-09 08:59 | Outpatient (CLI) | payer BC, SELFPAY ==
--- NOTE | 2022-08-09 08:45 | DI.RAD_ITS ---
Exam(s) XR KNEE LT 4V AP,LAT,DANETTE,PAT EXAM: XR KNEE LT 4V AP,LAT,DANETTE,PAT CLINICAL HISTORY: left knee pain. TECHNIQUE: 2D digital imaging was performed of the left knee. Four images were obtained. Merchant, AP, lateral and PA tunnel views were obtained. COMPARISON: CR XR KNEE LT 4V AP,LAT,DANETTE,PAT from 09/03/2021 FINDINGS: BONES: No acute fracture is present. No bony destructive lesion is seen. JOINTS: The knee is normally aligned. No joint effusion is seen. There is minimal joint space narrowi ng again seen. The joints are otherwise well maintained. SOFT TISSUE: Normal. IMPRESSION: Stable mild joint space narrowing. DATA REPOSITORY: RADIATION DOSE DELIVERED:
== END 2022-08-09 09:00 | disposition home or self-care (01) ==
LOC: DIORS 08:59
PROVIDERS: PCP Student in an Organized Health Care Education/Training Program; Referring Provider Student in an Organized Health Care Education/Training Program; Visit Provider Physician Assistant
DX: M25.562 Pain in left knee (principal); M25.862 Other specified joint disorders, left knee
CPT/HCPCS: 73564

== ENCOUNTER 2022-08-12 10:50 | Outpatient (CLI) | payer BC, SELFPAY ==
--- NOTE | 2022-08-12 09:51 | DI.DEXA_ITS ---
Exam(s) XR DEXA BONE DENSITY W/WO ANNA EXAM: XR DEXA BONE DENSITY W/WO ANNA CLINICAL HISTORY: re-evaluate (@ 4yrs) due to sig hip loss + PPI use Z91.89 SCREENING TECHNIQUE: COMPARISON: CR XR DEXA BONE DENSITY W/WO ANNA from 02/18/2019 FINDINGS: Lateral Spine Image: Unremarkable. No compression deformities identified. Left hip: Total T-Score: 0.0. This compares to 0.4 on the prior examination. Total Z-Score: 1.0 T- and Z-scores: Within normal limits. Note is made of osteopenia in the femoral neck with T-score of -1.4. Lumbar Spine: Total T-Score: -0.5. This is unchanged compared to the prior examination. Total Z-Score: 1.0 T- and Z-scores: Within normal limits. IMPRESSION: No evidence of osteoporosis.
== END 2022-08-12 11:10 ==
LOC: DI 10:51
PROVIDERS: PCP Student in an Organized Health Care Education/Training Program; Visit Provider Student in an Organized Health Care Education/Training Program
DX: Z91.89 Other specified personal risk factors, not elsewhere classified (principal); Z13.820 Encounter for screening for osteoporosis
CPT/HCPCS: 77080

== ENCOUNTER → 2022-10-03 13:32 | Outpatient (CLI) | payer BC, SELFPAY ==
--- NOTE | 2022-10-03 11:15 | DI.MRI_ITS ---
Exam(s) MR LOWER JOINT LT WO EXAM: MR LOWER JOINT LT WO CLINICAL HISTORY: Lt knee pain, M25.562, lateral portion TECHNIQUE: Multiplanar multisequence MRI of the knee was performed. COMPARISON: MR MRI R LOWER JOINT WO CONT from 10/18/2011 CR XR KNEE LT 4V AP,LAT,DANETTE,PAT from 08/09/2022 FINDINGS: EFFUSION: There is no evidence of joint effusion or Pak cyst in the popliteal fossa. MARROW:There is no evidence of fracture, bone contusion, nor osteochondral defects.. There are no si gnificant osseous lesions. PATELLOFEMORAL COMPARTMENT: The quadriceps tendon is intact. The patellar ligament is intact. There is no significant thinning of the retropatellar cartilage. No evidence of fissure nor signific ant chondral defect. No osteochondral defect at this level.There is no intraosseous signal to sugges t recent patellar dislocation. There are no patellar retinacular tears. CRUCIATE LIGAMENTS: The anterior cruciate ligament is intact.The posterior cruciate ligament is intac t. MEDIAL COMPARTMENT/MEDIAL MENISCUS: There are no tears of the medial meniscus evident.. There are no chondral defects, osteochondral defects, subarticular marrow edema, nor osteophytes evid ent. MEDIAL COLLATERAL LIGAMENT: Intact LATERAL COMPARTMENT/LATERAL MENISCUS: There is a tear of the anterior horn of the lateral meniscus wh ich exhibits both oblique and horizontal components and there is an associated multi septated degener ative meniscal cyst located lateral to this tear interposed between the outer aspect of the meniscus and the lateral capsular components of the iliotibial band and fibular collateral ligament. This col lection measures 4.8 cm AP by 2.7 cm cephalocaudal by a 0.4 cm wide. There appears to be 6 sparing o f the posterior horn of the lateral meniscus.There is a small focus of almost full-thickness focal ca rtilage thinning evident over the posterior horn of the lateral meniscus, not associated with subarti cular bone edema.No other cartilage changes. No osteophytes. No abnormal signal in the tibial plate au. ILIOTIBIAL BAND: Intact LATERAL COLLATERAL LIGAMENT COMPLEX: The fibular collateral ligament is intact. The biceps femoris t endon is intact.Popliteus muscle and tendon are intact. IMPRESSION: 1. The main finding here is a predominantly transverse tear of the lateral meniscus involving the ant erior horn. There is an associated multi septated degenerative meniscal cyst interposed between the outer aspect of the torn meniscus at this level and the lateral capsular components, this multi septa josh lobulated meniscal cyst measuring 0.4 cm wide but 4.8 cm AP x 2.7 cm cephalocaudal. There are no tears evident in the overlying retinaculum, iliotibial band and fibular collateral ligament. 2. There are no cruciate nor collateral ligament tears. 3. There is a small chondral defect over the posterior weight-bearing surface of the lateral femoral condyle, this over the posterior horn of the lateral meniscus. This appears to be full-thickness def ect measuring 3 mm wide by 4 mm AP. There is no associated overlying bone edema. 4. There is no 2 joint effusion and there is no Pak cyst in the popliteal fossa. DATA REPOSITORY:
== END ==
PROVIDERS: PCP Student in an Organized Health Care Education/Training Program; Visit Provider Student in an Organized Health Care Education/Training Program
DX: M23.242 Derangement of anterior horn of lateral meniscus due to old tear or injury, left knee (principal); M23.022 Cystic meniscus, posterior horn of medial meniscus, left knee
CPT/HCPCS: 73721

== ENCOUNTER 2022-11-01 08:20 | Outpatient (CLI) | payer BC, SELFPAY ==
[2022-11-01 09:45] LABS: HCT 41.9 % (36.0-46.0); HGB 14.6 g/dL (11.2-15.7); MCH 32.1 pg (27.0-33.0); MCHC 34.8 % (32.0-36.0); MCV 92 fL (80-95); MPV 9.8 fL (8.0-11.0); Platelet Count 219 10^3/uL (130-400); RBC 4.55 10^6/uL (3.93-5.22); RDW 11.9 % (11.7-14.6); RDW-SD 39.9 fL
[2022-11-01 10:31] LABS: ALT 28 U/L (14-59); AST 19 U/L (15-37); Albumin 3.7 g/dL (3.4-5.0); Alkaline Phosphatase 86 U/L (46-116); BUN 16 mg/dL (7-18); Bilirubin, Total 0.6 mg/dL (0.2-1.0); CREATININE 0.6 mg/dL (0.55-1.02); Calculated LDL 105 mg/dL (<100); Chloride 102 mmol/L (98-107); Cholesterol 181 mg/dL (<200); Estimated GFR 102.06 (mL/min/1.73m2); Glucose 108 mg/dL (74-106); HDL Cholesterol 65 mg/dL (40-60); Potassium 3.8 mmol/L (3.5-5.1); Sodium 137 mmol/L (136-145); TSH (W/Ref FT4) 2.03 uIU/mL (0.36-3.74); Total Protein 7.2 g/dL (6.4-8.2); Triglyceride 55 mg/dL (<150)
[2022-11-01 10:44] LABS: Vitamin D 25 Total 51.3 ng/mL (30-100)
[2022-11-02 10:39] LABS: HIV-1/2 Ag & Ab Screen Negative (Negative)
== END 2022-11-01 08:21 | disposition home or self-care (01) ==
LOC: LBO 08:26
PROVIDERS: PCP Student in an Organized Health Care Education/Training Program; Visit Provider Student in an Organized Health Care Education/Training Program
DX: R07.9 Chest pain, unspecified (principal); Z13.1 Encounter for screening for diabetes mellitus; Z13.220 Encounter for screening for lipoid disorders; M89.8X9 Other specified disorders of bone, unspecified site; Z91.89 Other specified personal risk factors, not elsewhere classified
CPT/HCPCS: 36415; 80053; 80061; 82306; 85027; 87389; 84443

== ENCOUNTER 2022-11-24 12:35 | Outpatient (CLI) | payer BC, SELFPAY ==
[2022-11-24 12:41] VITALS: BP 129/76; PULSE 75; RESP 20; TEMP 36.6; O2SAT 99
== END 2022-11-24 12:36 | disposition home or self-care (01) ==
LOC: PC 12:35
PROVIDERS: PCP Student in an Organized Health Care Education/Training Program; Visit Provider Preventive Medicine Occupational Medicine
DX: Z53.9 Procedure and treatment not carried out, unspecified reason (principal)

== ENCOUNTER → 2022-11-30 13:45 | Outpatient (CLI) | payer BC, SELFPAY ==
--- NOTE | 2022-11-30 10:15 | DI.MAMMO_ITS ---
Exam(s) MAMMO SCREENING EXAM: MAMMO SCREENING CLINICAL HISTORY: screening Z12.39 SCREENING FOR BREAST CANCER TECHNIQUE: Mammograms were interpreted according to the usual protocol including computer analysis w [employer] CAD system, tomosynthesis and C-view imaging. COMPARISON: 2014 through 2021 FINDINGS: The breasts are composed of mainly fatty density , Breast Density category A. No suspicious masses or suspicious microcalcifications are seen. No skin thickening or abnormal axillary lymph nodes are seen. There has been no significant change from prior exams. IMPRESSION: BI-RADS Category 1, Negative mammogram Yearly screening mammography is recommended. Breast Density - Category A, fatty density. A negative radiographic report should not delay biopsy if a dominant or clinically suspicious mass is present. Up to ten percent of cancers are not identified on mammography. A negative report may reinforce clinical impression. Adenosis and dense breasts may obscure an underlying neoplasm. False positive reports average 6 to 10%. Patient will receive a letter notifying them of these results.
== END ==
PROVIDERS: PCP Student in an Organized Health Care Education/Training Program; Visit Provider Student in an Organized Health Care Education/Training Program
DX: Z12.31 Encounter for screening mammogram for malignant neoplasm of breast (principal)
CPT/HCPCS: 77063; 77067

== ENCOUNTER 2022-12-08 11:00 | Outpatient (CLI) | payer BC, SELFPAY ==
[2022-12-08 11:07] VITALS: BP 119/70; PULSE 73; RESP 20; TEMP 36.5; O2SAT 96
--- NOTE | 2022-12-08 11:21 | PDOC.PAIN_ITS ---
Date of service: 12/08/22 Time of Service: 11:40 Pain Managment Procedure Note Procedure Note Procedure Note: PROCEDURE NOTE LEFT INTRA-ARTICULAR SACROILIAC JOINT INJECTION Date of Service: December 08, 2022 Patient: Shannan Jeff Provider: Giovani Torre DO, MPH COMMENTS: I previously evaluated the patient in the office and their symptoms in relation to the sacroiliac joint pain have remained the same. Pre-operative diagnosis: Sacroiliac joint dysfunction Post-operative diagnosis: Same Pre-procedure pain: VAS= 5/10 Shannan Jeff has been referred to our [facility] for a Left intra-articular Sacroiliac joint injection. Shannan was interviewed and the medical record reviewed. There were no medical, pharmacologic, radiographic or other structural contraindications to attempting a fluoroscopically-guided, contrast-enhanced, intra-articular Sacroiliac joint injection. The risks, benefits, and potential side effects of this procedure were reviewed with the patient. Questions and concerns were addressed. After it was clear that Shannan was fully informed about the procedure, the printed consent form was signed by the patient and myself. Shannan was placed in the prone position on the fluoroscopy table and an automated blood pressure cuff, 3 lead EKG, and pulse oximeter were applied. The skin entry point for approaching the Left sacroiliac joint was identified under the most advantageous fluoroscopic view and marked. Following thorough Chlorhexadine preparation of the skin and draping with sterile surgical drapes, 2 mls of 1% lidocaine was infiltrated into the skin at the entry point and the surrounding subcutaneous tissues. Next, a 3.5 22G spinal needle was placed under fluoroscopic guidance into the Left sacroiliac joint. Intra-articular placement was confirmed by a clear arthrogram resulting from the injection of 0.25ml of Omnipaque-240. Next, 1 ml of Depo- Medrol 80 mg/ml was injected intra-articularly with an initial reproduction of a significant component of the usual pain. This was followed with 1 ml of 1% Lidocaine. The needle was then removed without difficulty. (49 ml of Omnipaque-240 was wasted). Samaras vital signs were stable throughout the procedure and were as recorded in nursing records. Follow up plans and appointments were discussed with Shannan. Post procedure instructions were given as documented in nursing records. Having met discharge criteria, Shannan was discharged from the [facility]. COMMENTS: Post-procedure pain: VAS= 1/10. If the patient receives at least 50% improvement in pain and/or function for at least 3 months, this procedure can be repeated if needed. I personally performed this entire procedure. GIOVANI TORRE DO, MPH ABPMR-subspecialty board certification in Pain Medicine [facility] for Pain Management
[2022-12-08 11:38] VITALS: BP 148/78; PULSE 66; RESP 14; O2SAT 98
[2022-12-08] MEDS: Omnipaque 240 MG/ML 50 ML BTL IJ (11:40)
[2022-12-08] MEDS: methylPREDNISolone ACETATE 80 MG/ML VIAL IJ (11:40)
--- NOTE | 2022-12-08 18:15 | DI.RAD_ITS ---
Exam(s) XR PAIN CLINIC SACRIOILIAC 2V EXAM: XR PAIN CLINIC SACRIOILIAC 2V CLINICAL HISTORY: Dx: Sacroiliac Joint Dysfunction TECHNIQUE: 2D and realtime digital imaging was performed. CONTRAST MATERIAL: Refer to procedure report. COMPARISON: No exams were available for comparison FINDINGS: Fluoroscopy was provided for Dr. Torre during the performance of a left sacroiliac joint injection. Please refer to the procedure report for complete details. Ka,r=7.7 mGy IMPRESSION:
== END 2022-12-08 11:01 | disposition home or self-care (01) ==
LOC: PC 11:00
PROVIDERS: PCP Student in an Organized Health Care Education/Training Program; Visit Provider Preventive Medicine Occupational Medicine
DX: M46.1 Sacroiliitis, not elsewhere classified (principal)
CPT/HCPCS: 00123; 27096; 72200; J1040; Q9967

== ENCOUNTER 2022-12-20 02:50 | Outpatient (CLI) | payer BC, SELFPAY ==
[2022-12-20 08:36] LABS: Hemoglobin A1C 5.6 % (<5.7)
[2022-12-20 08:50] LABS: Anion Gap 7.4 mmol/L (3-11); BUN 18 mg/dL (7-18); CO2 29.6 mmol/L (21.0-32.0); CREATININE 0.6 mg/dL (0.55-1.02); Calcium 9.3 mg/dL (8.5-10.1); Chloride 101 mmol/L (98-107); Estimated GFR 102.06 (mL/min/1.73m2); Glucose 106 mg/dL (74-106); Potassium 3.8 mmol/L (3.5-5.1); Sodium 138 mmol/L (136-145)
== END 2022-12-20 02:51 | disposition home or self-care (01) ==
PROVIDERS: PCP Student in an Organized Health Care Education/Training Program; Visit Provider Student in an Organized Health Care Education/Training Program
DX: R73.09 Other abnormal glucose (principal); E87.8 Other disorders of electrolyte and fluid balance, not elsewhere classified
CPT/HCPCS: 36415; 80048; 83036

== ENCOUNTER 2023-01-25 14:40 | Outpatient (CLI) | payer BC, SELFPAY ==
--- NOTE | 2023-01-25 07:15 | DI.RAD_ITS ---
Exam(s) XR PAIN CLINIC SACRIOILIAC 2V EXAM: XR PAIN CLINIC SACRIOILIAC 2V CLINICAL HISTORY: Dx: Sacroiliac Joint Dysfunction. TECHNIQUE: Fluoroscopy was provided for the referring physician for guidance with performing pain cl inic injection procedure. COMPARISON: No exams were available for comparison FINDINGS: Please see procedure note for details. Fluoro time: 16.8 seconds RADIATION DOSE DELIVERED: Ka,r=3.96 mGy
[2023-01-25 15:30] VITALS: BP 134/71; PULSE 67; RESP 20; TEMP 36.7; O2SAT 99
--- NOTE | 2023-01-25 15:59 | PDOC.PAIN_ITS ---
Date of service: 01/25/23 Time of Service: 15:59 Pain Managment Procedure Note Procedure Note Procedure Note: PROCEDURE NOTE LEFT INTRA-ARTICULAR SACROILIAC JOINT INJECTION Date of Service: January 25, 2023 Patient: Shannan Jeff Provider: Giovani Torre DO, MPH COMMENTS: I previously evaluated the patient in the office and their symptoms in relation to the sacroiliac joint pain have remained the same. Pre-operative diagnosis: Sacroiliac joint dysfunction Post-operative diagnosis: Same Pre-procedure pain: VAS= 5/10 Shannan Jeff has been referred to our [facility] for a Left intra-articular Sacroiliac joint injection. Shannan was interviewed and the medical record reviewed. There were no medical, pharmacologic, radiographic or other structural contraindications to attempting a fluoroscopically-guided, contrast-enhanced, intra-articular Sacroiliac joint injection. The risks, benefits, and potential side effects of this procedure were reviewed with the patient. Questions and concerns were addressed. After it was clear that Shannan was fully informed about the procedure, the printed consent form was signed by the patient and myself. Shannan was placed in the prone position on the fluoroscopy table and an automated blood pressure cuff, 3 lead EKG, and pulse oximeter were applied. The skin entry point for approaching the Left sacroiliac joint was identified under the most advantageous fluoroscopic view and marked. Following thorough Chlorhexadine preparation of the skin and draping with sterile surgical drapes, 2 mls of 1% lidocaine was infiltrated into the skin at the entry point and the surrounding subcutaneous tissues. Next, a 3.5 22G spinal needle was placed under fluoroscopic guidance into the Left sacroiliac joint. Intra-articular placement was confirmed by a clear arthrogram resulting from the injection of 0.25ml of Omnipaque-240. Next, 1 ml of Depo- Medrol 80 mg/ml was injected intra-articularly with an initial reproduction of a significant component of the usual pain. This was followed with 1 ml of 1% Lidocaine. The needle was then removed without difficulty. (49 ml of Omnipaque-240 was wasted). Samaras vital signs were stable throughout the procedure and were as recorded in nursing records. Follow up plans and appointments were discussed with Shannan. Post procedure instructions were given as documented in nursing records. Having met discharge criteria, Shannan was discharged from the [facility]. COMMENTS: Post-procedure pain: VAS= 2/10. If the patient receives at least 50% improvement in pain and/or function for at least 3 months, this procedure can be repeated if needed. She will get back into her exercises after 36-48 hours of relative rest after this procedure. I personally performed this entire procedure. GIOVANI TORRE DO, MPH ABPMR-subspecialty board certification in Pain Medicine [facility] for Pain Management
[2023-01-25 16:01] VITALS: BP 133/69; PULSE 75; RESP 19; O2SAT 99
[2023-01-25] MEDS: methylPREDNISolone ACETATE 80 MG/ML VIAL IJ (16:02)
[2023-01-25] MEDS: Omnipaque 240 MG/ML 50 ML BTL IJ (16:03)
== END 2023-01-25 14:41 | disposition home or self-care (01) ==
PROVIDERS: PCP Student in an Organized Health Care Education/Training Program; Visit Provider Preventive Medicine Occupational Medicine
DX: M46.1 Sacroiliitis, not elsewhere classified (principal)
CPT/HCPCS: 00123; 27096; 72200; J1040; Q9967

== ENCOUNTER 2023-06-15 08:35 | Outpatient (CLI) | payer BC, SELFPAY ==
[2023-06-15 08:07] LABS: Hemoglobin A1C 5.5 % (<5.7)
[2023-06-15 08:27] LABS: Anion Gap 6.6 mmol/L (3-11); BUN 21 mg/dL (7-18); CO2 30.4 mmol/L (21.0-32.0); CREATININE 0.7 mg/dL (0.55-1.02); Calcium 8.9 mg/dL (8.5-10.1); Chloride 103 mmol/L (98-107); Estimated GFR 97.72 (mL/min/1.73m2); Glucose 108 mg/dL (74-106); Potassium 4.5 mmol/L (3.5-5.1); Sodium 140 mmol/L (136-145)
== END 2023-06-15 08:36 | disposition home or self-care (01) ==
LOC: LBO 08:35
PROVIDERS: PCP Student in an Organized Health Care Education/Training Program; Visit Provider Student in an Organized Health Care Education/Training Program
DX: R73.09 Other abnormal glucose (principal); I10 Essential (primary) hypertension
CPT/HCPCS: 36415; 80048; 83036

== ENCOUNTER 2024-01-03 00:43 | Outpatient (CLI) | payer BC, SELFPAY ==
--- NOTE | 2024-01-03 07:15 | DI.MAMMO_ITS ---
Exam(s) MAMMO SCREENING EXAM: MAMMO SCREENING CLINICAL HISTORY: screening,z12.39 TECHNIQUE: Mammograms were interpreted according to the usual protocol including computer analysis w [employer] CAD system, tomosynthesis and C-view imaging. COMPARISON: 2014 through 2022 FINDINGS: The breasts are composed of mainly fatty density , Breast Density category A. No suspicious masses or suspicious microcalcifications are seen. No skin thickening or abnormal axillary lymph nodes are seen. There has been no significant change from prior exams. IMPRESSION: BI-RADS Category 1, Negative mammogram Yearly screening mammography is recommended. Breast Density - Category A, fatty density. A negative radiographic report should not delay biopsy if a dominant or clinically suspicious mass is present. Up to ten percent of cancers are not identified on mammography. A negative report may reinforce clinical impression. Adenosis and dense breasts may obscure an underlying neoplasm. False positive reports average 6 to 10%. Patient will receive a letter notifying them of these results.
== END 2024-01-03 01:03 ==
PROVIDERS: PCP Student in an Organized Health Care Education/Training Program; Visit Provider Student in an Organized Health Care Education/Training Program
DX: Z12.31 Encounter for screening mammogram for malignant neoplasm of breast (principal); R92.313 Mammographic fatty tissue density, bilateral breasts
CPT/HCPCS: 77063; 77067

== ENCOUNTER 2024-04-01 15:35 | Outpatient (CLI) | payer BC, SELFPAY ==
--- NOTE | 2024-04-01 14:46 | DI.RAD_ITS ---
Exam(s) XR HAND LT COMPLETE EXAM: XR HAND LT COMPLETE CLINICAL HISTORY: left hand pain. TECHNIQUE: 2D digital imaging was performed. Three views. COMPARISON: No exams were available for comparison FINDINGS: BONES: No acute fracture is present. No bony destructive lesion is seen. JOINTS: No dislocation present. There is minimal spurring at the interphalangeal joints of the and thumb. SOFT TISSUE: Normal. IMPRESSION: Minimal degenerative changes of the interphalangeal joints. DATA REPOSITORY: RADIATION DOSE DELIVERED:
== END 2024-04-01 15:36 | disposition home or self-care (01) ==
LOC: DIORS 15:36
PROVIDERS: PCP Nurse Practitioner Family; Visit Provider Physician Assistant
DX: M25.532 Pain in left wrist
CPT/HCPCS: 73130

== ENCOUNTER 2024-04-18 01:48 | Outpatient (CLI) | payer BC, SELFPAY ==
--- NOTE | 2024-04-18 06:45 | DI.RAD_ITS ---
Exam(s) XR KNEE LT 3V AP,LAT,DANETTE EXAM: XR KNEE LT 3V AP,LAT,DANETTE CLINICAL HISTORY: left knee pain,M25.562. TECHNIQUE: 2D digital imaging was performed. Three views. COMPARISON: MR MR LOWER JOINT LT WO from 10/03/2022 FINDINGS: BONES: No acute fracture is present. No bony destructive lesion is seen. JOINTS: The knee is normally aligned. No joint effusion is seen. Joint spaces are maintained SOFT TISSUE: Normal. IMPRESSION: Normal radiographs of the left knee. DATA REPOSITORY: RADIATION DOSE DELIVERED:
== END 2024-04-18 02:08 ==
PROVIDERS: PCP Nurse Practitioner Family; Visit Provider Nurse Practitioner Family
DX: M25.562 Pain in left knee (principal)
CPT/HCPCS: 73562

== ENCOUNTER 2024-06-17 11:59 | Outpatient (REF) | payer BC, SELFPAY | END 2024-06-17 12:00 | disposition home or self-care (01) | LOC: LBN 11:59 | PROVIDERS: PCP Nurse Practitioner Family; Visit Provider Obstetrics & Gynecology | DX: Z12.4 Encounter for screening for malignant neoplasm of cervix (principal) | CPT/HCPCS: 88142; 87624 ==

== ENCOUNTER → 2025-01-03 02:56 | Outpatient (CLI) | payer BC, SELFPAY ==
--- NOTE | 2025-01-03 07:00 | DI.MAMMO_ITS ---
Exam(s) MAMMO SCREENING EXAM: MAMMO SCREENING CLINICAL HISTORY: screening,Z12.39. TECHNIQUE: Bilateral full field digital CC and MLO mammographic images were obtained with 3D tomosynthesis and utilizing computer aided detection (CAD). COMPARISON: Prior mammograms were reviewed. FINDINGS: There has been no significant change in the appearance and distribution of the fibroglandular tissue. There are no CAD designations. No new right breast findings. Small asymmetric There is no significant architectural distortion nor skin thickening-retraction. Density in the left breast on the MLO view appears slightly more prominent than on prior mammograms. This measures approximately 3-4 mm and is located 2.7 cm in from the nipple on the MLO view. Spot compression view recommended. There are no malignant-appearing microcalcification groups is region or elsewhere in either breast. No new architectural distortion or skin thickening-traction. IMPRESSION: 1. No radiographic evidence of malignancy in the right breast. 2. There is a 3-4 mm asymmetric dense/possible nodule in the left breast, as described above. Spot compression view and breast ultrasound recommended BI-RADS Category 0 - Incomplete: Need additional imaging evaluation Breast Density - Category B - There are scattered areas of fibroglandular density. Breast density Category C or D implies that the patient has dense breast tissue. Dense breast tissue can make it harder to find cancer on a mammogram. Dense breast tissue is also associated with an increased risk of breast cancer. This information about the result of the mammogram report was provided to the patient to raise their awareness. Use this report when you speak with the patient about their risks for breast cancer, which includes their family history. At that time, you may recommend additional screening tests (Ultrasound or MRI) as these tests may add significant information. A negative radiographic report should not delay biopsy if a dominant or clinically suspicious mass is present. Up to ten percent of cancers are not identified on mammography. A negative report may reinforce clinical impression. Adenosis and dense breasts may obscure an underlying neoplasm. False positive reports average 6 to 10%. Patient will receive a letter notifying them of these results.
== END ==
PROVIDERS: PCP Nurse Practitioner Family; Visit Provider Obstetrics & Gynecology
DX: Z12.31 Encounter for screening mammogram for malignant neoplasm of breast (principal); R92.323 Mammographic fibroglandular density, bilateral breasts
CPT/HCPCS: 77063; 77067

== ENCOUNTER → 2025-01-09 06:03 | Outpatient (CLI) | payer BC, SELFPAY ==
--- NOTE | 2025-01-09 | DI.MAMMO_ITS ---
Exam(s) MAMMO SCREEN CALL BACK UNI EXAM: MAMMO SCREEN CALL BACK UNI CLINICAL HISTORY: R92.8 Abn mammo, 3-4mm asymmetric dense/possible nodule LT breast 2.7 cm TECHNIQUE: Mammograms were interpreted according to the usual protocol including computer analysis with CAD system, tomosynthesis and C-view imaging. MLO spot compression views with tomographic imaging were performed. COMPARISON: No exams were available for comparison 03 January 2025 and exams back to 2016 FINDINGS: The breasts are composed of scattered fibroglandular densities, Breast Density category B. No suspicious masses or suspicious microcalcifications are seen. No skin thickening or abnormal axillary lymph nodes are seen. There has been no significant change from prior exams. IMPRESSION: BI-RADS Category 1, Negative mammogram Yearly screening mammography is recommended. Breast Density - Category B - There are scattered areas of fibroglandular density. Breast density Category C or D implies that the patient has dense breast tissue. Dense breast tissue can make it harder to find cancer on a mammogram. Dense breast tissue is also associated with an increased risk of breast cancer. This information about the result of the mammogram report was provided to the patient to raise their awareness. Use this report when you speak with the patient about their risks for breast cancer, which includes their family history. At that time, you may recommend additional screening tests (Ultrasound or MRI) as these tests may add significant information. A negative radiographic report should not delay biopsy if a dominant or clinically suspicious mass is present. Up to ten percent of cancers are not identified on mammography. A negative report may reinforce clinical impression. Adenosis and dense breasts may obscure an underlying neoplasm. False positive reports average 6 to 10%. Patient will receive a letter notifying them of these results.
== END ==
LOC: DI 06:03
PROVIDERS: PCP Nurse Practitioner Family; Visit Provider Obstetrics & Gynecology
DX: Z12.31 Encounter for screening mammogram for malignant neoplasm of breast (principal); R92.8 Other abnormal and inconclusive findings on diagnostic imaging of breast
CPT/HCPCS: 77063; 77067